=== PATIENT | male | born 1960 | race Caucasian/White ===

== ENCOUNTER 2021-01-12 14:47 | Outpatient (CLI) | payer BC, SELFPAY ==
--- NOTE | 2021-01-12 14:53 | USCV_ITS ---
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 CONCLUSIONS Features suggestive of mild peripheral arterial disease bilaterally Dr Tuan Brooks MD FAC (Electronically Signed) Final Date: 13 January 2021 08:25 S
== END 2021-01-12 14:48 | disposition home or self-care (01) ==
LOC: RAD 14:51
PROVIDERS: Visit Provider Electrodiagnostic Medicine
DX: I73.9 Peripheral vascular disease, unspecified (principal); M79.604 Pain in right leg
CPT/HCPCS: 93922